=== PATIENT | male | born 1945 | race Caucasian/White ===

== ENCOUNTER 2019-03-11 10:20 | Day surgery (SDC) | payer MEDICARE, BC ==
[2019-03-11] MEDS ORDERED: LIDOCAINE 2% MDV (20MG/ML) 20ML VIAL IV ONE (10:21)
[2019-03-11] MEDS ORDERED: PROPOFOL 10 MG/ML VIAL IV ONE (10:21)
--- NOTE | 2019-03-12 11:20 | Operative Note ---
OPERATION: COLONOSCOPY. PREOPERATIVE DIAGNOSIS: Screening colonoscopy. POSTOPERATIVE DIAGNOSIS: Hypertrophied anal papillae, otherwise normal exam. PROCEDURE: After informed consent was obtained from the patient, he was placed in the left lateral decubitus position in the endoscopy suite, sedated and monitored by the department of anesthesia. Digital rectal examination was unremarkable other than 2 nodules being palpated. A well-lubricated [id number] colonoscope was inserted into the rectum and advanced to the cecum. Preparation quality was good. The cecum, cecal bulb, ileocecal valve, appendiceal orifice, ascending colon, transverse colon, descending colon, sigmoid colon, and rectum were free of inflammatory changes, mass lesions, or polyps. Forward and J-turn views of the rectum and anorectum revealed 2 nodules in the distal rectum consistent with hypertrophied anal papillae. The endoscope was straightened, the rectal ampulla deflated, and the endoscope was removed. RECOMMENDATIONS: We will discuss with the patient if he wants to have further evaluation by Colorectal Surgery for his hypertrophied anal papillae. Otherwise, he should resume his medications and diet. Would undergo repeat exam in 10 years provided his health and interest allow. As always, thank you for allowing me to participate in the healthcare of your patients. [facility]
== END 2019-03-11 11:45 | disposition home or self-care (01) ==
LOC: HOP 10:20
PROVIDERS: ATTEND Internal Medicine Gastroenterology
DX: Z12.11 Encounter for screening for malignant neoplasm of colon (principal); K62.89 Other specified diseases of anus and rectum; I10 Essential (primary) hypertension
CPT/HCPCS: 00812; G0121